=== PATIENT | male | born 1965 | race Caucasian/White ===

== ENCOUNTER 2017-11-18 11:10 | Inpatient (IN) | payer OTHER ==
[~2017-11-18] VITALS: Ht 182.9 cm; Wt 81.2 kg
[~2017-11-18 11:10] MED LIST: ACET325; ACET325 PO; ALBU90I INH; ALBU90OI INH; ALBU90OI61 INH; AMIT25 PO; ASPIRIN; AZIT250 PO; BECL80OI INH; BUDE6HFA INH; CIPR500 PO; CLIN300 PO; CODGUAEL PO; DOXY100 PO; HYDACE5 PO; IBUP600 PO; IBUP800 PO; LISI10 PO; LORA1 PO; MEDICAL MARIJUANA; METF500 PO; METO50ER PO; METPRE4DP PO; NAPR500EC PO; NAPR550 PO; ONDA4 PO; ONDA4ODT MM; OXYACE5T PO; PRED20 PO; PROC10 PO; PROVENTIL; Prilosec Otc20 MG PO; QVAR INH; RXHYDMOR2 PO; RXONDA4ODT MM; SULTRIDS PO; TRAZ50 PO
[2017-11-18 11:35] LABS: BASOPHILS ABSOLUTE AUTO 0.07 K/mm3 (0.00-0.23); BASOPHILS PERCENT AUTO 1 % (0-2); EOSINOPHILS ABSOLUTE AUTO 0.75 K/mm3 (0.00-0.68); EOSINOPHILS PERCENT AUTO 10 % (0-6); Hematocrit 46.8 % (37.0-53.0); Hemoglobin 15.5 g/dL (13.5-17.5); IMMATURE GRAN ABSOLUTE AUTO 0.02 K/mm3 (0.00-0.10); IMMATURE GRAN PERCENT AUTO 0 % (0-1); LYMPHOCYTES ABSOLUTE AUTO 2.55 K/mm3 (0.84-5.20); LYMPHOCYTES PERCENT AUTO 34 % (21-46); MONOCYTES ABSOLUTE AUTO 0.85 K/mm3 (0.16-1.47); MONOCYTES PERCENT AUTO 11 % (4-13); Mean Corpuscular HGB 32.3 pg (26.0-34.0); Mean Corpuscular HGB Conc 33.1 g/dL (31.5-36.5); Mean Corpuscular Volume 98 fL (80-100); Mean Platelet Volume 11.4 fL (9.1-12.4); NEUTROPHILS ABSOLUTE AUTO 3.33 K/mm3 (1.96-9.15); NEUTROPHILS PERCENT AUTO 44 % (41-73); Platelet Count 234 K/mm3 (150-400); RDW Coefficient Variation 12.9 % (11.7-14.2); RDW Standard Deviation 46.6 fL (35.1-46.3); White Blood Cell Count 7.57 K/mm3 (4.00-11.30)
[2017-11-18 11:47] LABS: International Normalized Ratio 1.03; Prothrombin Time Results 10.7 Sec (9.7-11.5)
[2017-11-18 11:57] LABS: Alanine Aminotransfer (ALT/SGP 28 U/L (12-78); Albumin, Blood 3.9 g/dL (3.4-5.0); Albumin/Globulin Ratio 1.1 (0.8-1.8); Alk Phos 100 U/L (50-136); Anion Gap 6 mmol/L (6-16); Aspartate Aminotrans (AST/SGOT 17 U/L (12-37); Bilirubin, Total 0.5 mg/dL (0.1-1.0); Blood Urea Nitrogen 7 mg/dL (8-24); Bun/Creatinine Ratio 8.8 (12.0-20.0); CO2, Blood 27 mmol/L (21-32); Calcium, Blood 8.5 mg/dL (8.5-10.1); Chloride, Blood 108 mmol/L (98-108); Creatinine, Blood 0.79 mg/dL (0.60-1.20); Globulin, Blood 3.6 g/dL (2.2-4.0); Glomerular Filtration Rate >60 (60-); Glucose, Blood 172 mg/dL (70-99); Potassium, Blood 3.8 mmol/L (3.5-5.5); Sodium, Blood 141 mmol/L (136-145); Total Protein, Blood 7.5 g/dL (6.4-8.2); Troponin I 0.023 ng/mL (0.000-0.040)
[2017-11-18 12:12] LABS: Source, Urine Clean Catch
[2017-11-18 12:38] LABS: Bilirubin, Urine Neg (Neg); Blood, Urine 1+ (Neg); Glucose Qualitative, Urine 4+ (Neg); Ketones, Urine Neg (Neg); Leukocyte Esterase, Urine 1+ (Neg); Nitrite, Urine Neg (Neg); Protein, Urine 1+ (Neg); Urobilinogen, Urine 1+ (Normal)
[2017-11-18 12:44] LABS: Appearance, Urine Clear (Clear); Color, Urine Yellow (P-Yellow)
[2017-11-18 12:46] LABS: Bacteria Not Seen /hpf; Red Blood Cells, Urine 0-2 /hpf (0-2); Squamous Epithelial Cells Few /hpf (Few); White Blood Cells, Urine 0-2 /hpf (0-5)
[2017-11-19 05:16] LABS: CHOL/HDL RATIO 3.4; Cholesterol 152 mg/dL (50-200); HDL Cholesterol 45 mg/dL (>39); LDL/HDL RATIO 1.6; Low Density Lipoprotein Chol 70 mg/dL (0-110); Triglycerides 183 mg/dL (30-160); Very Low Density Lipoprot Chol 36 mg/dL (6-32)
[2017-11-20 04:06] LABS: Mean Platelet Volume 12.5 fL (9.1-12.4); Platelet Count 187 K/mm3 (150-400)
[2018-02-22] MEDS ORDERED: METF500C PO (05:53)
[2018-02-22] MEDS ORDERED: ASPI325EC PO (05:53)
[2018-05-15] MEDS ORDERED: ATOR80 PO (05:25)
[2018-05-15] MEDS ORDERED: CARV6.25 PO (05:25)
[2018-05-15] MEDS ORDERED: IBUPROFEN200 MG PO (05:26)
[2018-05-15] MEDS ORDERED: EZET10 PO (05:26)
[2018-07-13] MEDS ORDERED: METF500C PO (06:04)
[2018-07-13] MEDS ORDERED: TIOT18 INH (17:39)
[2018-07-14] MEDS ORDERED: Acetaminophen325 M1 PO (11:21)
[2018-07-14] MEDS ORDERED: Humalog100 UNIT/3 SC (11:24)
[2018-07-14] MEDS ORDERED: NICOTINE1 EACH TOP (11:24)
[2018-08-19] MEDS ORDERED: Prinivil10 MG PO (14:36)
[2018-08-19] MEDS ORDERED: BASAGLAR K100 UNIT/1 SC (14:37)
[2018-08-19] MEDS ORDERED: ALBU90OI INH (14:39)
[2018-08-19] MEDS ORDERED: Atrovent Inha12.9 GM INH (14:40)
[2018-08-20] MEDS ORDERED: TRAM50 PO (06:52)
[2018-08-26] MEDS ORDERED: BASAGLAR K100 UNIT/1 SC (21:22)
== END 2017-11-21 16:04 | disposition short-term general hospital (02) | DRG 281 ==
LOC: ER 11:10 → MEDS 14:13 → PCU 14:13
PROVIDERS: Family Medicine; Internal Medicine Cardiovascular Disease; Physician Assistant
PROC: 4A023N7 Measurement of Cardiac Sampling and Pressure, Left Heart, Percutaneous Approach (ICD-10-PCS; principal; 2017-11-18)
PROC: B2111ZZ Fluoroscopy of Multiple Coronary Arteries using Low Osmolar Contrast (ICD-10-PCS; 2017-11-18)
DX: I21.4 Non-ST elevation (NSTEMI) myocardial infarction (principal); I23.7 Postinfarction angina; I25.82 Chronic total occlusion of coronary artery; I25.118 Atherosclerotic heart disease of native coronary artery with other forms of angina pectoris; I10 Essential (primary) hypertension; F17.200 Nicotine dependence, unspecified, uncomplicated; J44.9 Chronic obstructive pulmonary disease, unspecified; F10.10 Alcohol abuse, uncomplicated; M47.812 Spondylosis without myelopathy or radiculopathy, cervical region; R73.03 Prediabetes; Z82.49 Family history of ischemic heart disease and other diseases of the circulatory system; Z79.51 Long term (current) use of inhaled steroids; Z79.899 Other long term (current) drug therapy; Z88.0 Allergy status to penicillin; Z88.8 Allergy status to other drugs, medicaments and biological substances
CPT/HCPCS: 36415; 71046; 80053; 80061; 81001; 83036; 83880; 84484; 85025; 85049; 85610; 85730; 87086; 93005; 93010; 93306; 93454; 94640; 94760; 94762; 96374; 96375; 99152; 99153; 99285; C1769; J1644; J1885; J2250; J2270; J3010; J7030; J7040; Q9967

== ENCOUNTER 2018-02-22 05:18 | Emergency (ER) | payer OTHER ==
[~2018-02-22] VITALS: Ht 182.9 cm; Wt 86.2 kg
[2018-02-22 05:50] LABS: BASOPHILS ABSOLUTE AUTO 0.06 K/mm3 (0.00-0.23); BASOPHILS PERCENT AUTO 0 % (0-2); EOSINOPHILS ABSOLUTE AUTO 0.08 K/mm3 (0.00-0.68); EOSINOPHILS PERCENT AUTO 0 % (0-6); Hematocrit 43.5 % (37.0-53.0); Hemoglobin 14.6 g/dL (13.5-17.5); IMMATURE GRAN ABSOLUTE AUTO 0.08 K/mm3 (0.00-0.10); IMMATURE GRAN PERCENT AUTO 0 % (0-1); LYMPHOCYTES ABSOLUTE AUTO 3.09 K/mm3 (0.84-5.20); LYMPHOCYTES PERCENT AUTO 17 % (21-46); MONOCYTES PERCENT AUTO 6 % (4-13); Mean Corpuscular HGB 31.1 pg (26.0-34.0); Mean Corpuscular HGB Conc 33.6 g/dL (31.5-36.5); Mean Corpuscular Volume 93 fL (80-100); Mean Platelet Volume 11.6 fL (9.1-12.4); NEUTROPHILS ABSOLUTE AUTO 14.28 K/mm3 (1.96-9.15); NEUTROPHILS PERCENT AUTO 77 % (41-73); Platelet Count 255 K/mm3 (150-400); RDW Coefficient Variation 13.4 % (11.7-14.2); RDW Standard Deviation 45.7 fL (35.1-46.3); White Blood Cell Count 18.69 K/mm3 (4.00-11.30)
[2018-02-22] MEDS ORDERED: ASPI325 PO (05:53)
[2018-02-22] MEDS ORDERED: METO25 (05:53)
[2018-02-22] MEDS ORDERED: METF500C (05:53)
[2018-02-22 06:06] LABS: Alanine Aminotransfer (ALT/SGP 46 U/L (12-78); Albumin, Blood 4.3 g/dL (3.4-5.0); Albumin/Globulin Ratio 1.3 (0.8-1.8); Alk Phos 97 U/L (50-136); Anion Gap 12 mmol/L (6-16); Aspartate Aminotrans (AST/SGOT 20 U/L (12-37); Bilirubin, Total 0.3 mg/dL (0.1-1.0); Blood Urea Nitrogen 7 mg/dL (8-24); Bun/Creatinine Ratio 11.5 (12.0-20.0); CO2, Blood 20 mmol/L (21-32); Calcium, Blood 8.6 mg/dL (8.5-10.1); Chloride, Blood 108 mmol/L (98-108); Creatinine, Blood 0.61 mg/dL (0.60-1.20); Globulin, Blood 3.3 g/dL (2.2-4.0); Glomerular Filtration Rate >60 (60-); Glucose, Blood 150 mg/dL (70-99); Potassium, Blood 3.7 mmol/L (3.5-5.5); Sodium, Blood 140 mmol/L (136-145); Total Protein, Blood 7.6 g/dL (6.4-8.2); Troponin I <0.015 ng/mL (0.000-0.040)
== END 2018-02-22 11:00 | disposition home or self-care (01) ==
LOC: ER 05:18
PROVIDERS: Emergency Medicine
DX: R07.89 Other chest pain (principal); E11.9 Type 2 diabetes mellitus without complications; F41.9 Anxiety disorder, unspecified; I10 Essential (primary) hypertension; J44.9 Chronic obstructive pulmonary disease, unspecified; I25.2 Old myocardial infarction; Z88.0 Allergy status to penicillin; Z88.8 Allergy status to other drugs, medicaments and biological substances; Z79.899 Other long term (current) drug therapy; Z79.82 Long term (current) use of aspirin; Z79.84 Long term (current) use of oral hypoglycemic drugs; Z87.891 Personal history of nicotine dependence
CPT/HCPCS: 36415; 71046; 80053; 84484; 85025; 93005; 93010; J2405

== ENCOUNTER 2018-05-15 05:03 | Emergency (ER) | payer OTHER ==
[~2018-05-15] VITALS: Ht 182.9 cm; Wt 74.8 kg
[~2018-05-15 05:03] MED LIST changes: +ASPI325 PO; +METF500C; +METO25
[2018-05-15] MEDS ORDERED: CARV3.125 (05:25)
[2018-05-15] MEDS ORDERED: ATOR20 (05:25)
[2018-05-15] MEDS ORDERED: FLUO10 (05:26)
[2018-05-15] MEDS ORDERED: IBUPROFEN200 MG (05:26)
[2018-05-15] MEDS ORDERED: EZET10 (05:26)
[2018-05-15 05:32] LABS: BASOPHILS ABSOLUTE AUTO 0.11 K/mm3 (0.00-0.23); BASOPHILS PERCENT AUTO 1 % (0-2); EOSINOPHILS ABSOLUTE AUTO 1.18 K/mm3 (0.00-0.68); EOSINOPHILS PERCENT AUTO 11 % (0-6); Hematocrit 43.4 % (37.0-53.0); IMMATURE GRAN ABSOLUTE AUTO 0.02 K/mm3 (0.00-0.10); IMMATURE GRAN PERCENT AUTO 0 % (0-1); LYMPHOCYTES ABSOLUTE AUTO 2.24 K/mm3 (0.84-5.20); LYMPHOCYTES PERCENT AUTO 21 % (21-46); MONOCYTES ABSOLUTE AUTO 0.84 K/mm3 (0.16-1.47); MONOCYTES PERCENT AUTO 8 % (4-13); Mean Corpuscular HGB 33.5 pg (26.0-34.0); Mean Corpuscular HGB Conc 34.6 g/dL (31.5-36.5); Mean Corpuscular Volume 97 fL (80-100); Mean Platelet Volume 11.5 fL (9.1-12.4); NEUTROPHILS ABSOLUTE AUTO 6.17 K/mm3 (1.96-9.15); NEUTROPHILS PERCENT AUTO 58 % (41-73); Platelet Count 278 K/mm3 (150-400); RDW Coefficient Variation 13.2 % (11.7-14.2); RDW Standard Deviation 47.3 fL (35.1-46.3); Red Blood Cell Count 4.48 M/mm3 (4.30-5.90); White Blood Cell Count 10.56 K/mm3 (4.00-11.30)
[2018-05-15] MEDS ORDERED: ALBU90OI INH (05:55)
[2018-05-15] MEDS ORDERED: Prednisone20 MG PO (05:55)
[2018-05-15 05:56] LABS: Alanine Aminotransfer (ALT/SGP 44 U/L (12-78); Albumin, Blood 3.7 g/dL (3.4-5.0); Albumin/Globulin Ratio 0.9 (0.8-1.8); Alk Phos 97 U/L (50-136); Anion Gap 10 mmol/L (6-16); Aspartate Aminotrans (AST/SGOT 38 U/L (12-37); Bilirubin, Total 0.4 mg/dL (0.1-1.0); Blood Urea Nitrogen 13 mg/dL (8-24); Bun/Creatinine Ratio 17.9 (12.0-20.0); CO2, Blood 24 mmol/L (21-32); Chloride, Blood 105 mmol/L (98-108); Creatinine, Blood 0.73 mg/dL (0.60-1.20); Globulin, Blood 3.9 g/dL (2.2-4.0); Glomerular Filtration Rate >60 (60-); Glucose, Blood 157 mg/dL (70-99); Potassium, Blood 4.2 mmol/L (3.5-5.5); Sodium, Blood 139 mmol/L (136-145); Total Protein, Blood 7.6 g/dL (6.4-8.2); Troponin I <0.015 ng/mL (0.000-0.040)
== END 2018-05-15 06:23 | disposition home or self-care (01) ==
LOC: ER 05:03
PROVIDERS: Emergency Medicine
DX: J44.1 Chronic obstructive pulmonary disease with (acute) exacerbation (principal); J98.01 Acute bronchospasm; E11.9 Type 2 diabetes mellitus without complications; I10 Essential (primary) hypertension; I25.2 Old myocardial infarction; J44.9 Chronic obstructive pulmonary disease, unspecified; F17.200 Nicotine dependence, unspecified, uncomplicated; Z88.0 Allergy status to penicillin; Z88.8 Allergy status to other drugs, medicaments and biological substances; Z79.899 Other long term (current) drug therapy; Z79.82 Long term (current) use of aspirin; Z79.51 Long term (current) use of inhaled steroids; Z79.84 Long term (current) use of oral hypoglycemic drugs
CPT/HCPCS: 36415; 71045; 80053; 83880; 84484; 85025; 93005; 93010; 94640; 96374; 99285-25; J2930

== ENCOUNTER 2018-06-21 02:51 | Emergency (ER) | payer OTHER ==
[~2018-06-21] VITALS: Ht 182.9 cm; Wt 77.1 kg
[~2018-06-21 02:51] MED LIST changes: +ATOR20; +CARV6.25; +EZET10; +FLUO10; +IBUPROFEN200 MG; +Prednisone20 MG PO
[2018-06-21 03:17] LABS: BASOPHILS ABSOLUTE AUTO 0.11 K/mm3 (0.00-0.23); BASOPHILS PERCENT AUTO 1 % (0-2); EOSINOPHILS ABSOLUTE AUTO 1.07 K/mm3 (0.00-0.68); EOSINOPHILS PERCENT AUTO 7 % (0-6); Hematocrit 46.5 % (37.0-53.0); Hemoglobin 15.6 g/dL (13.5-17.5); IMMATURE GRAN ABSOLUTE AUTO 0.05 K/mm3 (0.00-0.10); IMMATURE GRAN PERCENT AUTO 0 % (0-1); LYMPHOCYTES ABSOLUTE AUTO 3.09 K/mm3 (0.84-5.20); LYMPHOCYTES PERCENT AUTO 20 % (21-46); MONOCYTES ABSOLUTE AUTO 0.94 K/mm3 (0.16-1.47); MONOCYTES PERCENT AUTO 6 % (4-13); Mean Corpuscular HGB 33.1 pg (26.0-34.0); Mean Corpuscular HGB Conc 33.5 g/dL (31.5-36.5); Mean Corpuscular Volume 99 fL (80-100); Mean Platelet Volume 10.8 fL (9.1-12.4); NEUTROPHILS PERCENT AUTO 66 % (41-73); Platelet Count 327 K/mm3 (150-400); RDW Standard Deviation 44.4 fL (35.1-46.3); Red Blood Cell Count 4.71 M/mm3 (4.30-5.90); White Blood Cell Count 15.36 K/mm3 (4.00-11.30)
[2018-06-21 03:37] LABS: Alanine Aminotransfer (ALT/SGP 31 U/L (12-78); Albumin/Globulin Ratio 1.1 (0.8-1.8); Alk Phos 88 U/L (50-136); Anion Gap 9 mmol/L (6-16); Aspartate Aminotrans (AST/SGOT 19 U/L (12-37); Bilirubin, Total 0.3 mg/dL (0.1-1.0); Blood Urea Nitrogen 8 mg/dL (8-24); Bun/Creatinine Ratio 11.6 (12.0-20.0); CO2, Blood 24 mmol/L (21-32); Calcium, Blood 8.4 mg/dL (8.5-10.1); Chloride, Blood 107 mmol/L (98-108); Creatinine, Blood 0.69 mg/dL (0.60-1.20); Globulin, Blood 3.8 g/dL (2.2-4.0); Glomerular Filtration Rate >60 (60-); Glucose, Blood 150 mg/dL (70-99); Potassium, Blood 3.9 mmol/L (3.5-5.5); Sodium, Blood 140 mmol/L (136-145); Total Protein, Blood 7.8 g/dL (6.4-8.2); Troponin I <0.015 ng/mL (0.000-0.040)
[2018-06-21] MEDS ORDERED: Zithromax250 MG PO (03:58)
[2018-06-21] MEDS ORDERED: Prednisone50 MG PO (03:58)
== END 2018-06-21 04:04 | disposition home or self-care (01) ==
LOC: ER 02:51
PROVIDERS: Emergency Medicine
DX: J44.1 Chronic obstructive pulmonary disease with (acute) exacerbation (principal); E11.9 Type 2 diabetes mellitus without complications; I25.2 Old myocardial infarction; I10 Essential (primary) hypertension; Z88.0 Allergy status to penicillin; Z88.8 Allergy status to other drugs, medicaments and biological substances; Z79.899 Other long term (current) drug therapy; Z79.51 Long term (current) use of inhaled steroids; Z79.82 Long term (current) use of aspirin; Z79.84 Long term (current) use of oral hypoglycemic drugs; Z87.891 Personal history of nicotine dependence
CPT/HCPCS: 36415; 71045; 80053; 83880; 84484; 85025; 93005; 93010; 94640; 96374; 99285-25; J1100

== ENCOUNTER 2018-06-24 16:19 | Emergency (ER) | payer OTHER ==
[~2018-06-24] VITALS: Ht 182.9 cm; Wt 72.6 kg
[~2018-06-24 16:19] MED LIST changes: +Prednisone50 MG PO; +Zithromax250 MG PO
[2018-06-24] MEDS ORDERED: METPRE4DP PO (18:44)
[2018-06-24] MEDS ORDERED: Zithromax250 MG PO (18:44)
== END 2018-06-24 19:01 | disposition home or self-care (01) ==
LOC: ER 16:19
DX: J44.1 Chronic obstructive pulmonary disease with (acute) exacerbation (principal); F17.200 Nicotine dependence, unspecified, uncomplicated; E11.9 Type 2 diabetes mellitus without complications; I10 Essential (primary) hypertension; I25.2 Old myocardial infarction; Z88.0 Allergy status to penicillin; Z88.8 Allergy status to other drugs, medicaments and biological substances; Z79.899 Other long term (current) drug therapy; Z79.51 Long term (current) use of inhaled steroids; Z79.82 Long term (current) use of aspirin; Z79.84 Long term (current) use of oral hypoglycemic drugs
CPT/HCPCS: 71046; 94640; 94644; 99285-25

== ENCOUNTER 2018-09-26 03:04 | Observation (INO) | payer OTHER ==
[~2018-09-26] VITALS: Ht 182.9 cm; Wt 71.1 kg
[~2018-09-26 03:04] MED LIST changes: -ASPI325 PO; +ASPI325EC PO; -ATOR20; +ATOR80 PO; +Acetaminophen325 M1 PO; +Atrovent Inha12.9 GM INH; +BASAGLAR K100 UNIT/1 SC; -CARV6.25; +CARV6.25 PO; -EZET10; +EZET10 PO; +Humalog100 UNIT/3 SC; -IBUPROFEN200 MG; +IBUPROFEN200 MG PO; -METF500C; +METF500C PO; +NICOTINE1 EACH TOP; +Prinivil10 MG PO; +TIOT18 INH; +TRAM50 PO
[2018-09-26 03:24] LABS: BASOPHILS ABSOLUTE AUTO 0.09 K/mm3 (0.00-0.23); BASOPHILS PERCENT AUTO 1 % (0-2); EOSINOPHILS ABSOLUTE AUTO 0.69 K/mm3 (0.00-0.68); EOSINOPHILS PERCENT AUTO 6 % (0-6); Hematocrit 50.2 % (37.0-53.0); Hemoglobin 16.4 g/dL (13.5-17.5); IMMATURE GRAN ABSOLUTE AUTO 0.06 K/mm3 (0.00-0.10); IMMATURE GRAN PERCENT AUTO 1 % (0-1); LYMPHOCYTES ABSOLUTE AUTO 3.68 K/mm3 (0.84-5.20); LYMPHOCYTES PERCENT AUTO 34 % (21-46); MONOCYTES ABSOLUTE AUTO 0.73 K/mm3 (0.16-1.47); MONOCYTES PERCENT AUTO 7 % (4-13); Mean Corpuscular HGB 31.7 pg (26.0-34.0); Mean Corpuscular HGB Conc 32.7 g/dL (31.5-36.5); Mean Corpuscular Volume 97 fL (80-100); NEUTROPHILS ABSOLUTE AUTO 5.66 K/mm3 (1.96-9.15); NEUTROPHILS PERCENT AUTO 52 % (41-73); Platelet Count 337 K/mm3 (150-400); RDW Coefficient Variation 13.1 % (11.7-14.2); RDW Standard Deviation 47.1 fL (35.1-46.3); Red Blood Cell Count 5.17 M/mm3 (4.30-5.90); White Blood Cell Count 10.91 K/mm3 (4.00-11.30)
[2018-09-26 03:38] LABS: International Normalized Ratio 1.03; Prothrombin Time Results 10.6 Sec (9.7-11.5)
[2018-09-26 03:45] LABS: Alanine Aminotransfer (ALT/SGP 26 U/L (12-78); Albumin, Blood 4.1 g/dL (3.4-5.0); Albumin/Globulin Ratio 0.9 (0.8-1.8); Alk Phos 105 U/L (50-136); Anion Gap 11 mmol/L (6-16); Aspartate Aminotrans (AST/SGOT 14 U/L (12-37); Bilirubin, Total 0.3 mg/dL (0.1-1.0); Blood Urea Nitrogen 10 mg/dL (8-24); Bun/Creatinine Ratio 14.7 (12.0-20.0); CO2, Blood 21 mmol/L (21-32); Calcium, Blood 8.8 mg/dL (8.5-10.1); Chloride, Blood 111 mmol/L (98-108); Creatinine, Blood 0.68 mg/dL (0.60-1.20); Ethanol (Alcohol), Blood, Med 145 mg/dL; Globulin, Blood 4.4 g/dL (2.2-4.0); Glomerular Filtration Rate >60 (60-); Glucose, Blood 141 mg/dL (70-99); Potassium, Blood 4.1 mmol/L (3.5-5.5); Sodium, Blood 143 mmol/L (136-145); Total Protein, Blood 8.5 g/dL (6.4-8.2)
[2018-09-26] MEDS ORDERED: LISI5 PO (03:52)
[2018-09-26 04:50] LABS: Source, Urine Clean Catch
[2018-09-26 04:53] LABS: Bilirubin, Urine Neg (Neg); Blood, Urine 1+ (Neg); Glucose Qualitative, Urine Neg (Neg); Ketones, Urine Neg (Neg); Leukocyte Esterase, Urine Neg (Neg); Nitrite, Urine Neg (Neg); Protein, Urine Neg (Neg); Urobilinogen, Urine NORM (Normal)
[2018-09-26 05:06] LABS: Appearance, Urine Clear (Clear); Color, Urine Yellow (P-Yellow)
[2018-09-26 05:15] LABS: Bacteria Not Seen /hpf; Red Blood Cells, Urine Not Seen /hpf (0-2); Squamous Epithelial Cells Not Seen /hpf (Few); White Blood Cells, Urine Not Seen /hpf (0-5)
[2018-09-26 05:17] LABS: U Amphetamine Screen Not Detected; U Barbituate Screen Not Detected; U Benzodiazapine Screen Not Detected; U Buprenorphine Screen Not Detected; U Cannabinoids Screen DETECTED; U Cocaine Screen Not Detected; U Methadone Screen Not Detected; U Methamphetamine Screen Not Detected; U Opiates Screen Not Detected; U Phencyclidine Screen Not Detected; U Propoxyphene Screen Not Detected
[2018-09-26 05:18] LABS: U Oxycodone Screen Not Detected
--- NOTE | 2018-09-26 13:01 | NUR ---
PT C/O HEADACHE. CALLED DR TLAANG. SYED ONCE TYLENOL 650 MG. PO . ONE TIME.
[2018-09-26] MEDS ORDERED: Bisoprolol Fumar5 MG PO (14:48)
--- NOTE | 2018-09-26 15:06 | NUR ---
HEADACHE PERSISTS AN HOUR AFTER TYLENOL.. COFFEE GIVEN. WILL FOLLOW
--- NOTE | 2018-09-26 15:58 | NUR ---
PT STATES HEADACHE BETTER WITH COFFEE
--- NOTE | 2018-09-26 17:27 | NUR ---
PT STATES TREMORS NORM FOR HIM. NEVER STOP. HEADACHE RESOLVED WITH 2 CUPS COFFEE. PT PLEASANT.
--- NOTE | 2018-09-26 17:52 | NUR ---
PT IMPROVING. HAS NO NOTICEABLE STRENGTH LOSS THIS MARIE LEFT TO RIGHT. PT H/A GONE WITH CAFFEINE. PT ADMITS LIGHT TREMORS RN MATERNITY. NEVER GO AWAY. DENIES HALUCINATIONS, OTHER AFFECTS OF ETOH W/D AT THIS TIME. PT WALKED HALLS WITH EASE WITH PT. STATES FEELS PRETTY GOOD AT THIS TIME. BED IN LOW POSITION, CALL LITE IN REACH, CALLS APPROP.
--- NOTE | 2018-09-26 18:23 | NUR ---
PT WALKED PT DOWN SPRING INDEPENDANTLY. ALMOST NO DEFICIT NOTED LEFT TO RIGHT. PT COMFORTABLE WITH STABILITY AND MOVEMENT. CALLED DR DAVALOS. OKAY COMPLETE BEDREST AND ALLOW WALKING
[2018-09-27 06:06] LABS: Anion Gap 7 mmol/L (6-16); Blood Urea Nitrogen 15 mg/dL (8-24); Bun/Creatinine Ratio 18.4 (12.0-20.0); CHOL/HDL RATIO 4.4; CO2, Blood 26 mmol/L (21-32); Calcium, Blood 9.3 mg/dL (8.5-10.1); Chloride, Blood 103 mmol/L (98-108); Cholesterol 182 mg/dL (50-200); Creatinine, Blood 0.82 mg/dL (0.60-1.20); Glomerular Filtration Rate >60 (60-); Glucose, Blood 189 mg/dL (70-99); HDL Cholesterol 41 mg/dL (>39); LDL/HDL RATIO 2.6; Low Density Lipoprotein Chol 108 mg/dL (0-110); Magnesium, Blood 2.1 mg/dL (1.6-2.4); Phosphorus, Blood 3.5 mg/dL (2.5-4.9); Sodium, Blood 136 mmol/L (136-145); Triglycerides 163 mg/dL (30-160); Very Low Density Lipoprot Chol 32 mg/dL (6-32)
--- NOTE | 2018-09-27 06:31 | NUR ---
LYING IN SEMI FOWLERS WITH EYES CLOSED. NO CHANGES SINCE START OF SHIFT. SAFETY MEASURES IN PLACE. WILL CONTINUE TO MONITOR.
[2018-09-27] MEDS ORDERED: THIA100I PO (12:52)
[2018-09-27] MEDS ORDERED: Hair, Skin & N1 EACH PO (12:53)
== END 2018-09-27 13:07 | disposition home or self-care (01) ==
LOC: ER 03:04 → SURS 03:05 → ER 05:40 → SURS 08:29
PROVIDERS: Emergency Medicine; Internal Medicine; ADMIT Hospitalist
DX: R29.898 Other symptoms and signs involving the musculoskeletal system (principal); I10 Essential (primary) hypertension; J44.9 Chronic obstructive pulmonary disease, unspecified; R56.9 Unspecified convulsions; E11.8 Type 2 diabetes mellitus with unspecified complications; F10.129 Alcohol abuse with intoxication, unspecified; F12.90 Cannabis use, unspecified, uncomplicated; E87.2 Acidosis; F32.9 Major depressive disorder, single episode, unspecified; F10.10 Alcohol abuse, uncomplicated; E11.9 Type 2 diabetes mellitus without complications; Z79.4 Long term (current) use of insulin; I25.10 Atherosclerotic heart disease of native coronary artery without angina pectoris; Z95.1 Presence of aortocoronary bypass graft; F17.210 Nicotine dependence, cigarettes, uncomplicated; Z88.0 Allergy status to penicillin; Z88.8 Allergy status to other drugs, medicaments and biological substances; Z79.82 Long term (current) use of aspirin; Z79.899 Other long term (current) drug therapy
CPT/HCPCS: 36415; 70450; 70496; 70498; 70551; 80048; 80053; 80061; 81001; 82550; 82947; 83036; 83605; 83735; 84100; 84484; 85025; 85610; 92610; 93005; 93010; 94640; 94760; 95950; 96360; 96361; 97161; 99285-25; G0480; G8978; G8979; G8980; G8996; G8997; G8998; J1650; J2060; J7030; Q9967

== ENCOUNTER 2019-01-18 16:44 | Emergency (ER) | payer OTHER ==
[~2019-01-18] VITALS: Ht 180.3 cm; Wt 81.7 kg
[~2019-01-18 16:44] MED LIST changes: +Bisoprolol Fumar5 MG PO; +Hair, Skin & N1 EACH PO; +LISI5 PO; +THIA100I PO
[2019-01-18 17:15] LABS: BASOPHILS ABSOLUTE AUTO 0.06 K/mm3 (0.00-0.23); BASOPHILS PERCENT AUTO 1 % (0-2); EOSINOPHILS ABSOLUTE AUTO 0.27 K/mm3 (0.00-0.68); EOSINOPHILS PERCENT AUTO 2 % (0-6); Hematocrit 48.3 % (37.0-53.0); Hemoglobin 16.5 g/dL (13.5-17.5); IMMATURE GRAN ABSOLUTE AUTO 0.04 K/mm3 (0.00-0.10); IMMATURE GRAN PERCENT AUTO 0 % (0-1); LYMPHOCYTES ABSOLUTE AUTO 4.18 K/mm3 (0.84-5.20); LYMPHOCYTES PERCENT AUTO 35 % (21-46); MONOCYTES ABSOLUTE AUTO 0.56 K/mm3 (0.16-1.47); MONOCYTES PERCENT AUTO 5 % (4-13); Mean Corpuscular HGB 31.9 pg (26.0-34.0); Mean Corpuscular HGB Conc 34.2 g/dL (31.5-36.5); Mean Corpuscular Volume 93 fL (80-100); Mean Platelet Volume 10.9 fL (9.1-12.4); NEUTROPHILS ABSOLUTE AUTO 6.96 K/mm3 (1.96-9.15); NEUTROPHILS PERCENT AUTO 58 % (41-73); Platelet Count 337 K/mm3 (150-400); RDW Coefficient Variation 13.6 % (11.7-14.2); RDW Standard Deviation 46.6 fL (35.1-46.3); Red Blood Cell Count 5.17 M/mm3 (4.30-5.90); White Blood Cell Count 12.07 K/mm3 (4.00-11.30)
[2019-01-18 17:29] LABS: Alanine Aminotransfer (ALT/SGP 26 U/L (12-78); Albumin, Blood 4.2 g/dL (3.4-5.0); Alk Phos 96 U/L (50-136); Anion Gap 11 mmol/L (6-16); Aspartate Aminotrans (AST/SGOT 19 U/L (12-37); Bilirubin, Total 0.2 mg/dL (0.1-1.0); Blood Urea Nitrogen 6 mg/dL (8-24); Bun/Creatinine Ratio 9.5 (12.0-20.0); CO2, Blood 22 mmol/L (21-32); Calcium, Blood 8.9 mg/dL (8.5-10.1); Chloride, Blood 109 mmol/L (98-108); Creatinine, Blood 0.63 mg/dL (0.60-1.20); Ethanol (Alcohol), Blood, Med 240 mg/dL; Glomerular Filtration Rate >60 (60-); Glucose, Blood 150 mg/dL (70-99); Potassium, Blood 3.9 mmol/L (3.5-5.5); Sodium, Blood 142 mmol/L (136-145); Total Protein, Blood 8.2 g/dL (6.4-8.2); Troponin I 0.026 ng/mL (0.000-0.040)
[2019-01-18 17:30] LABS: Prothrombin Time Results 10.6 Sec (9.7-11.5)
[2019-01-18 17:40] LABS: PCO2 Venous 40.1 mmHg (38-42); PO2 Venous 142 mmHg (38-42)
[2019-01-18 17:41] LABS: Base Excess Venous 0.1 mmol/L; Bicarbonate Venous 24.5 mmol/L (24.0-30.0)
[2019-01-18 17:58] LABS: Source, Urine Voided
[2019-01-18 18:04] LABS: Appearance, Urine Clear (Clear); Bilirubin, Urine Neg (Neg); Blood, Urine 2+ (Neg); Color, Urine Yellow (P-Yellow); Glucose Qualitative, Urine Neg (Neg); Ketones, Urine Neg (Neg); Leukocyte Esterase, Urine Neg (Neg); Nitrite, Urine Neg (Neg); Protein, Urine 2+ (Neg); Urobilinogen, Urine NORM (Normal)
[2019-01-18 18:33] LABS: Amorphous Light (0-Heavy); Bacteria Not Seen /hpf; Mucus Mod (0-Heavy); Red Blood Cells, Urine 0-2 /hpf (0-2); Squamous Epithelial Cells Few /hpf (Few); White Blood Cells, Urine Rare /hpf (0-5)
[2019-01-18 18:39] LABS: U Amphetamine Screen Not Detected; U Barbituate Screen Not Detected; U Benzodiazapine Screen Not Detected; U Buprenorphine Screen Not Detected; U Cannabinoids Screen DETECTED; U Cocaine Screen Not Detected; U Methadone Screen Not Detected; U Methamphetamine Screen Not Detected; U Opiates Screen Not Detected; U Oxycodone Screen Not Detected; U Phencyclidine Screen Not Detected; U Propoxyphene Screen Not Detected
[2019-01-18] MEDS ORDERED: Nitrostat0.4 MG SL (20:07)
== END 2019-01-18 20:15 | disposition home or self-care (01) ==
LOC: ER 16:44
PROVIDERS: Emergency Medicine
DX: R07.89 Other chest pain (principal); J44.9 Chronic obstructive pulmonary disease, unspecified; E11.9 Type 2 diabetes mellitus without complications; Z88.0 Allergy status to penicillin; Z88.8 Allergy status to other drugs, medicaments and biological substances; Z79.4 Long term (current) use of insulin; Z79.82 Long term (current) use of aspirin; I10 Essential (primary) hypertension; F32.9 Major depressive disorder, single episode, unspecified; I25.10 Atherosclerotic heart disease of native coronary artery without angina pectoris; Z87.891 Personal history of nicotine dependence
CPT/HCPCS: 70450; 71045; 80053; 81001; 82803; 82947; 84484; 85025; 85610; 93005; 93010; 96374; 96375; 99285-25; G0480; J2060; J2405

== ENCOUNTER 2019-08-06 20:47 | Emergency (ER) | payer OTHER ==
[~2019-08-06] VITALS: Ht 182.9 cm; Wt 77.1 kg
[~2019-08-06 20:47] MED LIST changes: +Nitrostat0.4 MG SL
[2019-08-06 21:39] LABS: BASOPHILS ABSOLUTE AUTO 0.06 K/mm3 (0.00-0.23); BASOPHILS PERCENT AUTO 0 % (0-2); EOSINOPHILS ABSOLUTE AUTO 0.09 K/mm3 (0.00-0.68); EOSINOPHILS PERCENT AUTO 1 % (0-6); Hematocrit 48.1 % (37.0-53.0); Hemoglobin 16.4 g/dL (13.5-17.5); IMMATURE GRAN ABSOLUTE AUTO 0.04 K/mm3 (0.00-0.10); IMMATURE GRAN PERCENT AUTO 0 % (0-1); LYMPHOCYTES ABSOLUTE AUTO 1.69 K/mm3 (0.84-5.20); LYMPHOCYTES PERCENT AUTO 11 % (21-46); MONOCYTES PERCENT AUTO 4 % (4-13); Mean Corpuscular HGB 31.1 pg (26.0-34.0); Mean Corpuscular HGB Conc 34.1 g/dL (31.5-36.5); Mean Corpuscular Volume 91 fL (80-100); Mean Platelet Volume 11.6 fL (9.1-12.4); NEUTROPHILS ABSOLUTE AUTO 12.58 K/mm3 (1.96-9.15); NEUTROPHILS PERCENT AUTO 84 % (41-73); Platelet Count 258 K/mm3 (150-400); RDW Coefficient Variation 13.4 % (11.7-14.2); RDW Standard Deviation 45.7 fL (35.1-46.3); Red Blood Cell Count 5.28 M/mm3 (4.30-5.90); White Blood Cell Count 15.06 K/mm3 (4.00-11.30)
[2019-08-06 22:00] LABS: Alanine Aminotransfer (ALT/SGP 24 U/L (12-78); Albumin, Blood 4.4 g/dL (3.4-5.0); Albumin/Globulin Ratio 1.2 (0.8-1.8); Alk Phos 102 U/L (50-136); Anion Gap 10 mmol/L (6-16); Aspartate Aminotrans (AST/SGOT 17 U/L (12-37); Bilirubin, Total 0.4 mg/dL (0.1-1.0); Blood Urea Nitrogen 9 mg/dL (8-24); Bun/Creatinine Ratio 11.3 (12.0-20.0); CO2, Blood 23 mmol/L (21-32); Calcium, Blood 9.5 mg/dL (8.5-10.1); Chloride, Blood 107 mmol/L (98-108); Globulin, Blood 3.7 g/dL (2.2-4.0); Glomerular Filtration Rate >60 (60-); Glucose, Blood 157 mg/dL (70-99); Potassium, Blood 3.8 mmol/L (3.5-5.5); Sodium, Blood 140 mmol/L (136-145); Total Protein, Blood 8.1 g/dL (6.4-8.2); Troponin I <0.015 ng/mL (0.000-0.040)
[2019-08-07] MEDS ORDERED: METO5A PO (01:39)
== END 2019-08-07 02:05 | disposition home or self-care (01) ==
LOC: ER 20:47
PROVIDERS: Physician Assistant
DX: R11.2 Nausea with vomiting, unspecified (principal); E11.9 Type 2 diabetes mellitus without complications; I10 Essential (primary) hypertension; J44.9 Chronic obstructive pulmonary disease, unspecified; F32.9 Major depressive disorder, single episode, unspecified; I25.2 Old myocardial infarction; K21.9 Gastro-esophageal reflux disease without esophagitis; I25.10 Atherosclerotic heart disease of native coronary artery without angina pectoris; Z87.891 Personal history of nicotine dependence; Z88.0 Allergy status to penicillin; Z88.8 Allergy status to other drugs, medicaments and biological substances; Z79.82 Long term (current) use of aspirin; Z79.84 Long term (current) use of oral hypoglycemic drugs; Z79.51 Long term (current) use of inhaled steroids; Z79.899 Other long term (current) drug therapy
CPT/HCPCS: 36415; 71046; 80053; 83690; 84484; 85025; 93005; 93010; 96374; 96375; 99285-25; J1200; J1630; J2405

== ENCOUNTER → 2020-01-26 | Outpatient (CLI) | payer OTHER ==
[~2020-01-26] MED LIST changes: +METO5A PO
[2020-01-26 13:41] LABS: Creatinine, Urine Random 35.6 mg/dL (27.00-270.00)
[2020-01-26 13:44] LABS: Microalb/Creat Ratio UR, Rand 41.292 mg/g (0.000-30.000); Microalbumin, Random Urine 14.7 mg/L (0.000-20.000)
== END | disposition home or self-care (01) ==
LOC: LAB 09:48 → LAB SHORT 09:48
PROVIDERS: Nurse Practitioner Family
DX: E11.65 Type 2 diabetes mellitus with hyperglycemia (principal)
CPT/HCPCS: 82043; 82570

== ENCOUNTER 2020-02-23 12:09 | Inpatient (IN) | payer OTHER ==
[~2020-02-23] VITALS: Ht 182.9 cm; Wt 67.6 kg
[2020-02-23 12:37] LABS: BASOPHILS ABSOLUTE AUTO 0.07 K/mm3 (0.00-0.23); BASOPHILS PERCENT AUTO 1 % (0-2); EOSINOPHILS PERCENT AUTO 2 % (0-6); Hematocrit 46.6 % (37.0-53.0); Hemoglobin 15.7 g/dL (13.5-17.5); IMMATURE GRAN ABSOLUTE AUTO 0.02 K/mm3 (0.00-0.10); IMMATURE GRAN PERCENT AUTO 0 % (0-1); LYMPHOCYTES ABSOLUTE AUTO 2.09 K/mm3 (0.84-5.20); LYMPHOCYTES PERCENT AUTO 18 % (21-46); MONOCYTES ABSOLUTE AUTO 0.61 K/mm3 (0.16-1.47); MONOCYTES PERCENT AUTO 5 % (4-13); Mean Corpuscular HGB 32.2 pg (26.0-34.0); Mean Corpuscular HGB Conc 33.7 g/dL (31.5-36.5); Mean Corpuscular Volume 96 fL (80-100); Mean Platelet Volume 11.9 fL (9.1-12.4); NEUTROPHILS ABSOLUTE AUTO 8.45 K/mm3 (1.96-9.15); NEUTROPHILS PERCENT AUTO 74 % (41-73); Platelet Count 192 K/mm3 (150-400); RDW Coefficient Variation 12.7 % (11.7-14.2); RDW Standard Deviation 45.2 fL (35.1-46.3); Red Blood Cell Count 4.88 M/mm3 (4.30-5.90); White Blood Cell Count 11.44 K/mm3 (4.00-11.30)
[2020-02-23 12:55] LABS: Alanine Aminotransfer (ALT/SGP 21 U/L (12-78); Albumin, Blood 4.1 g/dL (3.4-5.0); Albumin/Globulin Ratio 1.2 (0.8-1.8); Alk Phos 86 U/L (50-136); Anion Gap 6 mmol/L (6-16); Aspartate Aminotrans (AST/SGOT 11 U/L (12-37); Bilirubin, Total 0.6 mg/dL (0.1-1.0); Blood Urea Nitrogen 6 mg/dL (8-24); Bun/Creatinine Ratio 7.6 (12.0-20.0); CO2, Blood 26 mmol/L (21-32); Chloride, Blood 107 mmol/L (98-108); Creatinine, Blood 0.79 mg/dL (0.60-1.20); Globulin, Blood 3.4 g/dL (2.2-4.0); Glomerular Filtration Rate >60 (60-); Glucose, Blood 166 mg/dL (70-99); Potassium, Blood 3.9 mmol/L (3.5-5.5); Sodium, Blood 139 mmol/L (136-145); Total Protein, Blood 7.5 g/dL (6.4-8.2)
--- NOTE | 2020-02-23 19:26 | NUR ---
SUMMARY PT HAS BEEN A&O X3, VSS, ON RROM AIR SINCE ADMISSION TO THE FLOOR. PT IS FORGETFUL AT TIMES BUT ANSWERS MOST QUESTIONS APPROPRIATLY. RIGHT SIDED WEAKNESS NOTED, PT STATES "IT FEELS HEAVY". PT IS VOIDING WNL. BED ALARM IS ON FOR SAFETY, CALL LIGHT IN REACH. PT'S SIGNIFICANT OTHER (PANCHO) HAS BEEN UPDATED VIA [employer] ABOUT PT'S STATUS THIS EVENING WITH PT'S CONSENT. HE IS UPSET THAT THE PT HAS NOT BEEN SEEN BY A NEUROLOGIST, EDUCATION WAS ATTEMPTED BUT WAS SHUT DOWN. REQUEST WAS REPORTED TO [facility] NURSE AT THIS TIME.
--- NOTE | 2020-02-23 20:12 | NUR ---
UPDATE NOTIFIED NURSE PRACTIONER BALBINA THAT PATIENT WAS HAVING A HEADACHE BUT IS NPO FOR A SWALLOW EVAL. ORDERS RECEIVED.
--- NOTE | 2020-02-24 07:50 | NUR ---
SHIFT SUMMARY PATIENT PLEASENT AND COOPERATIVE THROUGHOUT THE NIGHT. PATIENT APPEARED TO SLEEP WELL LAST NIGHT. PATIENT MEDICATED FOR HEADACHE PAIN PER EMAR. PATIENT'S IV FLUIDS RUNNING PER EMAR. PATIENT ABLE TO MOVE SELF ABOUT IN THE BED. REPORT GIVEN TO ONCOMING RN.
--- NOTE | 2020-02-24 08:08 | NUR ---
AM NOTE... ASSUMED CARE OF PT APROX 0700. PT IS A&Ox4. PT WAS ADMITTED FOR POSSIBLE STROKE, PT HAS RIGHT SIDED WEAKNESS, PT IS ABLE TO LIFT AND MOVE ARM BUT HE STATES IS FEELS "HEAVY." SLIGHT RIGHT SIDED FACIAL DROOP NOTED, PT'S SMILE HAS SLIGHT DROOP TO THE RIGHT, PT'S TONGUE DROOPS TO THE RIGHT WHEN ASKED TO SICK IT OUT. PT'S RIGHT LEG IS WEAK BUT PT HAS GROSS MOVEMENT. PT IS NPO FOR SPEECH EVALUATION TODAY. VS STABLE AT THIS TIME, PT C/O OF HEADACHE OF 7/10, AND WAS MEDICATED PER EMAR. L/S CLEAR T/O ON RA. NO EDEMA NOTED ON ASSESSMENT. BT PRESENT AND HYPERACTIVE ABD SOFT AND NONTENDER TO PALP. CALL LIGHT IN REACH WILL CONTINUE TO MONITOR.
[2020-02-24 09:27] LABS: CHOL/HDL RATIO 3.3; Cholesterol 141 mg/dL (50-200); HDL Cholesterol 43 mg/dL (>39); LDL/HDL RATIO 1.8; Low Density Lipoprotein Chol 76 mg/dL (0-110); Triglycerides 111 mg/dL (30-160); Very Low Density Lipoprot Chol 22 mg/dL (6-32)
[2020-02-24] MEDS ORDERED: FLUT1DIS5 INH (12:58)
[2020-02-24] MEDS ORDERED: ALBU2.5V5 INH (13:00)
[2020-02-24] MEDS ORDERED: OXYC5 PO (13:01)
[2020-02-24] MEDS ORDERED: BASAGLAR K100 UNIT/2 SC (13:01)
--- NOTE | 2020-02-24 18:08 | NUR ---
SHIFT SUMMARY... NO ACUTE NEGATIVE CHANGES NOTED THIS SHIFT. PT STILL HAS RIGHT SIDED WEAKNESS BUT THIS HAS IMPROVED SLIGHTLY, PT'S [employer] ON THE RIGHT HAND IS STRONGER THAN IT WAS ON FIRST ASSESSMENT. PT'S CONTROL OF HIS RIGHT ARM HAS IMPROVED SLIGHTLY WELL. PT WAS EVALUATED BY PT/OT AND IS 1-2P PIVOT TRANSFER TO CHAIR/BSC. PT FAILED HIS SWALLOW EVAL AND IS STILL NPO, PT HAS BEEN REFUSING ORAL SWABS/ORAL CARE. PT'S VS HAVE BEEN STABLE. PT'S S.O HAS BEEN UPDATED T/O THIS SHIFT BY THIS RN AND THE DRILL SETUP OPERATOR. CALL LIGHT IN REACH WILL CONTINUE TO MONITOR UNTIL REPORT IS GIVEN TO ONCOMING RN.
[2020-02-24 18:32] LABS: U Amphetamine Screen Not Detected; U Barbituate Screen Not Detected; U Benzodiazapine Screen Not Detected; U Buprenorphine Screen Not Detected; U Cannabinoids Screen DETECTED; U Cocaine Screen Not Detected; U Methadone Screen Not Detected; U Methamphetamine Screen Not Detected; U Opiates Screen Not Detected; U Oxycodone Screen Not Detected; U Phencyclidine Screen Not Detected; U Propoxyphene Screen Not Detected
[2020-02-25 04:31] LABS: Hematocrit 48.5 % (37.0-53.0); Hemoglobin 16.3 g/dL (13.5-17.5); Mean Corpuscular HGB 31.7 pg (26.0-34.0); Mean Corpuscular HGB Conc 33.6 g/dL (31.5-36.5); Mean Corpuscular Volume 94 fL (80-100); Mean Platelet Volume 11.9 fL (9.1-12.4); Platelet Count 182 K/mm3 (150-400); RDW Coefficient Variation 12.2 % (11.7-14.2); RDW Standard Deviation 42.8 fL (35.1-46.3); Red Blood Cell Count 5.15 M/mm3 (4.30-5.90); White Blood Cell Count 8.47 K/mm3 (4.00-11.30)
[2020-02-25 04:46] LABS: Albumin, Blood 3.7 g/dL (3.4-5.0); Anion Gap 8 mmol/L (6-16); Blood Urea Nitrogen 11 mg/dL (8-24); CO2, Blood 25 mmol/L (21-32); Calcium, Blood 8.9 mg/dL (8.5-10.1); Chloride, Blood 105 mmol/L (98-108); Creatinine, Blood 0.85 mg/dL (0.60-1.20); Glomerular Filtration Rate >60 (60-); Glucose, Blood 94 mg/dL (70-99); Phosphorus, Blood 3.5 mg/dL (2.5-4.9); Potassium, Blood 3.6 mmol/L (3.5-5.5); Sodium, Blood 138 mmol/L (136-145)
--- NOTE | 2020-02-25 05:14 | NUR ---
SHIFT SUMMARY: NO ACUTE CHANGES THIS SHIFT. PT CONTINUES TO C/O HEADACHE. PAIN IN OCCIPITAL LOBE. GIVEN ICE PACK FOR COMFORT. PT DENIES ANY CHANGES IN VISION. DENIES NAUSEA. MEDICATED WITH TORADOL PER EMAR WHICH WAS NOT EFFECTIVE. PT THEN MEDICATED WITH ATIVAN WHICH RELIEVED THE HEADACHE FOR APPROX 7 HOURS. CIWA SCORE NOTED TO BE 8 AT TIMES D/T SEVERE HEADACHE AND FEELING MIDLY ANXIOUS. PT STILL WEAK ON RIGHT SIDE. MILD FACIAL DROOP. FLAT AFFECT. A&O T/O SHIFT. VS WNL. NPO AND GIVEN MOUTH SWABS FOR COMFORT. IVF FLUIDS COMPLETE PER ORDERS. VOIDING WELL IN URINAL AT BEDSIDE.
--- NOTE | 2020-02-25 09:25 | NUR ---
AM NOTE... ASSUMED CARE OF PT APROX 0700. PT IS A&Ox4 AND WAS ADMITTED FOR A STROKE. PT HAS RIGHT SIDED WEAKNESS THAT HAS IMPROVED SINCE ADMIT. PT HAS SLIGHT RIGHT SIDED FACIAL DROOP BUT TONGUE NO LONGER DRIFTS TO THE RIGHT. L/S COARSE T/O DIM IN THE BASES ON RA. BT PRESENT AND HYPERACTIVE ABD SOFT AND NONTENDER TO PALP. PT STILL C/O OF SEVERE HEADACHE THAT HE SAID STARTED WHEN "THIS ALL STARTED." PT'S CWIA WAS AT 8 THIS AM. SPEECH THERAPY WAS IN THE ROOM THIS AM, PT IS ABLE TO HAVE A REGULAR ADA DIET AND THIN LIQUIDS PER ST. CALL LIGHT IN REACH WILL CONTINUE TO MONITOR
--- NOTE | 2020-02-25 17:42 | NUR ---
SHIFT SUMMARY... PT WAS STABLE UNTIL APROX 1530, PT STARTED TO C/O OF A SEVERE HEADACHE OF 8/10, PT WAS HOLDING HIS HEAD IN HIS HANDS AND MOANING. PT WAS MEDICATED PER EMAR. PT STATED THAT THE LIGHTS MADE IT WORSE. IT WAS NOTED DURING THIS HEADACHE THAT THE PT'S RIGHT SIDED WEAKNESS RETURNED, HIS TONGUE LISTED TO THE RIGHT, FACIAL DROOP WAS INCREASED AND THE PT WAS HARDLY ABLE TO MOVE HIS RIGHT ARM AND LEG. PROVIDER WAS CALLED AND ORDERS OBTAINED FOR ANOTHER MRI/MRV AND OTHER MEDICATIONS. PT WAS GIVEN ATIVAN 0.5MG THIS HE STATED HELPED HIS HEADACHE THE MOST. AT APROX 1700 PROVIDER WAS AT THE BEDSIDE, PROVIDER AND PT AGREED THAT A COBRA TRANSFER TO [facility] WOULD BE BEST AT THIS TIME. MOST OF THE STRENGTH HAS RETURNED TO HIS ARM, LEG AND FACIAL DROOPS HAS IMPROVED WELL. PT'S VS WERE STABLE T/O THIS EVENT. PT'S S.O. WAS CALLED BY THE PROVIDER AND UPDATED TO THE PT'S PLAN OF CARE. CALL LIGHT IN REACH WILL CONTINUE TO MONITOR.
--- NOTE | 2020-02-25 23:36 | NUR ---
SHIFT SUMMARY: PATIENT ALERT AND ORIENTED WITH MILD WORD FINDING/EXPRESSIVE APHASIA, ABLE TO PIVOT TRANSFER WITH LEFT LEG. RIGHT LEG AND ARM VERY WEAK, POOR TECHNICAL AID STRENGTH IN RIGHT HAND. RIGHT FACIAL DROOP WITH RIGHT SIDED TONGUE DEVIATION. PATIENT VSS, CALL LIGHT WITHIN REACH AND USED APPROPRIATLY. PATIENT LUL TRANSFERED TO [facility] VIA EMS AT APPROX 2230. REPORT GIVEN TO EMS AND RECIEVING FORD YAN. ALL PATIENT BELONGINGS SENT WITH PATIENT, PATIENTS SIGNIFICANT OTHER NOTIFIED OF TRANSFER BY PATIENT PER PATIENT.
== END 2020-02-25 22:22 | disposition short-term general hospital (02) | DRG 102 ==
LOC: ER 12:09 → PCU 14:15
PROVIDERS: Emergency Medicine; Internal Medicine; ADMIT Internal Medicine
DX: G43.409 Hemiplegic migraine, not intractable, without status migrainosus (principal); I63.9 Cerebral infarction, unspecified; F10.929 Alcohol use, unspecified with intoxication, unspecified; I10 Essential (primary) hypertension; J44.9 Chronic obstructive pulmonary disease, unspecified; E11.9 Type 2 diabetes mellitus without complications; I25.10 Atherosclerotic heart disease of native coronary artery without angina pectoris; Z79.82 Long term (current) use of aspirin; Z95.1 Presence of aortocoronary bypass graft; E78.5 Hyperlipidemia, unspecified; Z87.891 Personal history of nicotine dependence; Z79.4 Long term (current) use of insulin
CPT/HCPCS: 36415; 70450; 70496; 70498; 70544; 70551; 80053; 80061; 80069; 82550; 82947; 83036; 85025; 85027; 92526; 92610; 93005; 93010; 93306; 94640; 94760; 97110; 97112; 97162; 97166; 97530; 97535; 99285-25; J1885; J2060; J2765; J3030; J3411; J7120; Q9967

== ENCOUNTER 2022-02-23 10:21 | Inpatient (IN) | payer OTHER ==
[~2022-02-23] VITALS: Ht 182.9 cm; Wt 66.0 kg
[~2022-02-23 10:21] MED LIST changes: +ALBU2.5V5 INH; +BASAGLAR K100 UNIT/2 SC; +FLUT1DIS5 INH; +OXYC5 PO
[2022-02-23 11:09] LABS: BASOPHILS ABSOLUTE AUTO 0.02 K/mm3 (0.00-0.23); BASOPHILS PERCENT AUTO 0 % (0-2); EOSINOPHILS PERCENT AUTO 0 % (0-6); Hematocrit 51.6 % (37.0-53.0); IMMATURE GRAN ABSOLUTE AUTO 0.03 K/mm3 (0.00-0.10); IMMATURE GRAN PERCENT AUTO 1 % (0-1); LYMPHOCYTES ABSOLUTE AUTO 0.57 K/mm3 (0.84-5.20); LYMPHOCYTES PERCENT AUTO 10 % (21-46); MONOCYTES ABSOLUTE AUTO 0.57 K/mm3 (0.16-1.47); MONOCYTES PERCENT AUTO 10 % (4-13); Mean Corpuscular HGB 31.1 pg (26.0-34.0); Mean Corpuscular HGB Conc 34.9 g/dL (31.5-36.5); Mean Corpuscular Volume 89 fL (80-100); Mean Platelet Volume 12.1 fL (9.1-12.4); NEUTROPHILS ABSOLUTE AUTO 4.75 K/mm3 (1.96-9.15); NEUTROPHILS PERCENT AUTO 80 % (41-73); Platelet Count 133 K/mm3 (150-400); RDW Coefficient Variation 13.6 % (11.7-14.2); RDW Standard Deviation 44.3 fL (35.1-46.3); Red Blood Cell Count 5.78 M/mm3 (4.30-5.90); White Blood Cell Count 5.94 K/mm3 (4.00-11.30)
[2022-02-23 11:29] LABS: Albumin, Blood 4.3 g/dL (3.4-5.0); Albumin/Globulin Ratio 1.2 (0.8-1.8); Bilirubin, Direct 0.2 mg/dL (0.0-0.3); Bilirubin, Indirect 0.4 mg/dL (0.1-0.7); Bilirubin, Total 0.6 mg/dL (0.1-1.0); Bun/Creatinine Ratio 14.3 (12.0-20.0); Calcium, Blood 9.3 mg/dL (8.5-10.1); Creatinine, Blood 0.84 mg/dL (0.60-1.20); Globulin, Blood 3.6 g/dL (2.2-4.0); Magnesium, Blood 1.9 mg/dL (1.6-2.4); Potassium, Blood 3.8 mmol/L (3.5-5.5); Total Protein, Blood 7.9 g/dL (6.4-8.2)
[2022-02-23 12:29] LABS: Source, Urine Clean Catch
[2022-02-23 12:52] LABS: Appearance, Urine Clear (Clear); Bilirubin, Urine Neg (Neg); Blood, Urine 3+ (Neg); Color, Urine Yellow (P-Yellow); Glucose Qualitative, Urine Neg (Neg); Ketones, Urine 4+ (Neg); Leukocyte Esterase, Urine Neg (Neg); Nitrite, Urine Neg (Neg); Protein, Urine 3+ (Neg); Specific Gravity, Urine 1.015 (1.003-1.022); Urobilinogen, Urine NORM (Normal)
[2022-02-23 13:11] LABS: Bacteria Rare /hpf; Squamous Epithelial Cells Not Seen /hpf (Few); White Blood Cells, Urine 0-2 /hpf (0-5)
[2022-02-23 13:12] LABS: Granular Casts 0-2 /lpf (0)
[2022-02-23] MEDS ORDERED: ATOR40TA PO (15:51)
[2022-02-23] MEDS ORDERED: Qvar Redihaler INH (15:52)
[2022-02-23] MEDS ORDERED: Zestril30 MG PO (15:54)
[2022-02-23 16:35] LABS: Anti-Xa UFH, PHA Monitoring <0.10 IU/mL; International Normalized Ratio 1.07; Prothrombin Time Results 11.2 Sec (9.7-11.5)
[2022-02-24 01:08] LABS: BASOPHILS ABSOLUTE AUTO 0.02 K/mm3 (0.00-0.23); BASOPHILS PERCENT AUTO 0 % (0-2); EOSINOPHILS ABSOLUTE AUTO 0.01 K/mm3 (0.00-0.68); EOSINOPHILS PERCENT AUTO 0 % (0-6); Hematocrit 48.7 % (37.0-53.0); Hemoglobin 16.7 g/dL (13.5-17.5); IMMATURE GRAN ABSOLUTE AUTO 0.02 K/mm3 (0.00-0.10); IMMATURE GRAN PERCENT AUTO 0 % (0-1); LYMPHOCYTES ABSOLUTE AUTO 1.12 K/mm3 (0.84-5.20); LYMPHOCYTES PERCENT AUTO 16 % (21-46); MONOCYTES ABSOLUTE AUTO 0.82 K/mm3 (0.16-1.47); MONOCYTES PERCENT AUTO 12 % (4-13); Mean Corpuscular HGB 30.5 pg (26.0-34.0); Mean Corpuscular HGB Conc 34.3 g/dL (31.5-36.5); Mean Corpuscular Volume 89 fL (80-100); Mean Platelet Volume 11.6 fL (9.1-12.4); NEUTROPHILS ABSOLUTE AUTO 5.17 K/mm3 (1.96-9.15); NEUTROPHILS PERCENT AUTO 72 % (41-73); Platelet Count 104 K/mm3 (150-400); RDW Coefficient Variation 13.5 % (11.7-14.2); RDW Standard Deviation 44.7 fL (35.1-46.3); Red Blood Cell Count 5.47 M/mm3 (4.30-5.90); White Blood Cell Count 7.16 K/mm3 (4.00-11.30)
[2022-02-24 01:26] LABS: Albumin, Blood 3.2 g/dL (3.4-5.0); Albumin/Globulin Ratio 1.1 (0.8-1.8); Bilirubin, Total 0.3 mg/dL (0.1-1.0); Bun/Creatinine Ratio 17.3 (12.0-20.0); Calcium, Blood 8.1 mg/dL (8.5-10.1); Creatinine, Blood 0.87 mg/dL (0.60-1.20); Potassium, Blood 3.5 mmol/L (3.5-5.5); Total Protein, Blood 6.2 g/dL (6.4-8.2)
--- NOTE | 2022-02-24 05:01 | NUR ---
Patient with VSS on RA overnight. Patient with c/o abdominal pain and nausea overnight. See MAR. Voiding per urinal QS. Heparin gtt running, no changes made to rate overnight. Patient wanting to get in the shower but discussed his heparin gtt and that it could not be paused. Patient states understanding.
--- NOTE | 2022-02-24 18:27 | NUR ---
PATIENT HAS ABDOMINAL PALIN WITH LITTLE STATED RELIEF FROM PAIN MEDICATION. HE IS HOWEVER, SITTING UP, TALKING, AND ABLE TO STAND WHILE PAIN IS STILL RATED A 9 AFTER DILAUDID. PATIENT HAS HAD PAIN MEDICATION AND ANTINAUSEA MEDICATION PRN THROUGHOUT THE DAY. HIS DIET WAS ADVANCED TO CLEAR FLUID, HOWEVER HE DIDN'T TOLERATE IT WELL AND DID VOMIT AFTER LUNCH. HE CAN TOLERATE ICE WATER. PATIENT HAS VISITOR ARE UPSET WITH CARE AND WANT SOMETHING TO HAPPEN MORE IMMEDIATE. THE SURGEON DR. GARCIA MET WITH THEM TO EXPLAIN PROCESS. PATIENT STILL UNHAPPY WITH PLAN.
--- NOTE | 2022-02-25 04:49 | NUR ---
Patient with low grade temperature overnight. Moderate c/o pf both mid and right abdominal pain. Some nausea. See MAR. Voiding dark, concentrated urine. Stopped Heparin gtt. LR still running at 75. patient pleasant and conversive overnight. Expressed frustation over lack of progress with his pain and nausea. Skin inspection reveals no acute skin issues.
[2022-02-25 05:48] LABS: BASOPHILS ABSOLUTE AUTO 0.02 K/mm3 (0.00-0.23); BASOPHILS PERCENT AUTO 0 % (0-2); EOSINOPHILS PERCENT AUTO 0 % (0-6); Hematocrit 42.3 % (37.0-53.0); Hemoglobin 14.4 g/dL (13.5-17.5); IMMATURE GRAN ABSOLUTE AUTO 0.01 K/mm3 (0.00-0.10); IMMATURE GRAN PERCENT AUTO 0 % (0-1); LYMPHOCYTES ABSOLUTE AUTO 0.64 K/mm3 (0.84-5.20); LYMPHOCYTES PERCENT AUTO 12 % (21-46); MONOCYTES ABSOLUTE AUTO 0.57 K/mm3 (0.16-1.47); MONOCYTES PERCENT AUTO 11 % (4-13); Mean Corpuscular HGB 30.8 pg (26.0-34.0); Mean Corpuscular Volume 90 fL (80-100); NEUTROPHILS ABSOLUTE AUTO 3.97 K/mm3 (1.96-9.15); NEUTROPHILS PERCENT AUTO 76 % (41-73); Platelet Count 80 K/mm3 (150-400); RDW Coefficient Variation 13.7 % (11.7-14.2); RDW Standard Deviation 46.1 fL (35.1-46.3); Red Blood Cell Count 4.68 M/mm3 (4.30-5.90); White Blood Cell Count 5.21 K/mm3 (4.00-11.30)
[2022-02-25 05:57] LABS: Albumin, Blood 2.8 g/dL (3.4-5.0); Albumin/Globulin Ratio 1.1 (0.8-1.8); Bilirubin, Total 0.4 mg/dL (0.1-1.0); Bun/Creatinine Ratio 16.1 (12.0-20.0); Calcium, Blood 7.7 mg/dL (8.5-10.1); Creatinine, Blood 0.81 mg/dL (0.60-1.20); Globulin, Blood 2.6 g/dL (2.2-4.0); Magnesium, Blood 1.8 mg/dL (1.6-2.4); Phosphorus, Blood 2.8 mg/dL (2.5-4.9); Potassium, Blood 3.5 mmol/L (3.5-5.5); Total Protein, Blood 5.4 g/dL (6.4-8.2)
[2022-02-25 06:00] LABS: Mean Platelet Volume 13.1 fL (9.1-12.4)
[2022-02-25 12:24] LABS: U Amphetamine Screen Not Detected; U Barbituate Screen Not Detected; U Benzodiazapine Screen Not Detected; U Buprenorphine Screen Not Detected; U Cannabinoids Screen DETECTED; U Cocaine Screen Not Detected; U Methadone Screen Not Detected; U Methamphetamine Screen Not Detected; U Opiates Screen DETECTED; U Oxycodone Screen Not Detected; U Phencyclidine Screen Not Detected; U Propoxyphene Screen Not Detected
[2022-02-25 15:33] LABS: Campylobacter Sp Detected (NOT DETECT); Enteroaggregative E. coli-EAEC Not Detected (NOT DETECT); Enteropathogenic E. coli-EPEC Not Detected (NOT DETECT); Enterotoxigenic E. coli-ETEC Not Detected (NOT DETECT); Plesiomonas Shigelloides Not Detected (NOT DETECT); Salmonella Sp Not Detected (NOT DETECT); Vibrio Cholerae Not Detected (NOT DETECT); Vibrio Sp Not Detected (NOT DETECT); Yersinia Enterocolitica Not Detected (NOT DETECT)
[2022-02-25 15:34] LABS: Adenovirus F 40/41 Not Detected (NOT DETECT); Astrovirus Not Detected (NOT DETECT); Cryptosporidium Not Detected (NOT DETECT); Cyclospora Cayetanensis Not Detected (NOT DETECT); E. Coli O157 Not Detected (NOT DETECT); Entamoeba Histolytica Not Detected (NOT DETECT); Giardia Lamblia Not Detected (NOT DETECT); Norovirus GI/GII Not Detected (NOT DETECT); Rotavirus A Not Detected (NOT DETECT); Sapovirus Not Detected (NOT DETECT); Shiga Toxin-prod E. coli-STEC Not Detected (NOT DETECT); Shigella/Enteroin E. coli-EIEC Not Detected (NOT DETECT)
--- NOTE | 2022-02-25 19:06 | NUR ---
SHIFT SUMMARY PT A&O X4. HAS REQUESTED PAIN MEDS THROUGHOUT SHIFT FOR C/O ABD PAIN. REQUESTED ZOFRAN TWICE. THIS EVENING AT APPROX 1800 PT WAS DRY HEAVING & STATING PAIN WAS 9 OUT OF 10. PLACED CALL TO MD & ORDERS RECEIVED. TOO SOON TO GIVE ZOFRAN. PHENERGAN ORDERED BUT PT STATES HE CAN'T TAKE IT THAT IT CAUSES ADVERSE SIDE EFFECTS. DILAUDID GIVEN PER NEW MD ORDER WITH GOOD RELIEF STATED BY PT.
[2022-02-26 05:04] LABS: BASOPHILS ABSOLUTE AUTO 0.02 K/mm3 (0.00-0.23); BASOPHILS PERCENT AUTO 0 % (0-2); EOSINOPHILS ABSOLUTE AUTO 0.01 K/mm3 (0.00-0.68); EOSINOPHILS PERCENT AUTO 0 % (0-6); Hematocrit 44.7 % (37.0-53.0); Hemoglobin 15.3 g/dL (13.5-17.5); IMMATURE GRAN ABSOLUTE AUTO 0.04 K/mm3 (0.00-0.10); IMMATURE GRAN PERCENT AUTO 1 % (0-1); LYMPHOCYTES ABSOLUTE AUTO 0.85 K/mm3 (0.84-5.20); LYMPHOCYTES PERCENT AUTO 10 % (21-46); MONOCYTES ABSOLUTE AUTO 0.76 K/mm3 (0.16-1.47); MONOCYTES PERCENT AUTO 9 % (4-13); Mean Corpuscular HGB 30.9 pg (26.0-34.0); Mean Corpuscular HGB Conc 34.2 g/dL (31.5-36.5); Mean Corpuscular Volume 90 fL (80-100); Mean Platelet Volume 12.9 fL (9.1-12.4); NEUTROPHILS ABSOLUTE AUTO 6.82 K/mm3 (1.96-9.15); NEUTROPHILS PERCENT AUTO 80 % (41-73); Platelet Count 85 K/mm3 (150-400); RDW Coefficient Variation 13.6 % (11.7-14.2); RDW Standard Deviation 45.5 fL (35.1-46.3); Red Blood Cell Count 4.95 M/mm3 (4.30-5.90)
[2022-02-26 05:37] LABS: Albumin/Globulin Ratio 1.1 (0.8-1.8); Bilirubin, Total 0.6 mg/dL (0.1-1.0); Bun/Creatinine Ratio 13.3 (12.0-20.0); Creatinine, Blood 0.83 mg/dL (0.60-1.20); Globulin, Blood 2.8 g/dL (2.2-4.0); Potassium, Blood 3.5 mmol/L (3.5-5.5); Total Protein, Blood 5.8 g/dL (6.4-8.2)
--- NOTE | 2022-02-26 06:06 | NUR ---
MEMORANDUM STATEMENT CLERK SUMMARY ADMITTED FOR INTRACTABLE NAUSEA. PT IS FULL CODE. PT REQUIRED PAIN MEDICATION AND NAUSEA MEDICATION MULTIPLE TIMES THROUGHOUT THE NIGHT BUT REPORTS IMPROVEMENT IN PAIN AND NAUSEA THIS AM. HE WAS ABLE TO REST IN BETWEEN MED ADMINISTRATION. PT IS 1P SBA TO BR AND USES HIS CANE. HE DOES REPORT SOME WEAKNESS, BUT THIS IS IMPROVING.
[2022-02-26 13:07] LABS: HEPARIN INDUCED PLATELET AB 0.157 OD (0.000-0.400)
--- NOTE | 2022-02-26 19:00 | NUR ---
SHIFT SUMMARY PT A&O X 4. VSS. PT REPORTS FEELING BETTER TODAY COMPARED TO YESTERDAY. IS AGREEABLE TO SWITCHING TO PO PAIN MEDS AND ADVANCING HIS DIET TO HOPEFULLY BE ABLE TO GO HIME TOMORROW. IS TOLERATING PO PAIN MEDS AND CARDIAC DIET.
[2022-02-27 06:29] LABS: BASOPHILS ABSOLUTE AUTO 0.02 K/mm3 (0.00-0.23); BASOPHILS PERCENT AUTO 0 % (0-2); EOSINOPHILS ABSOLUTE AUTO 0.08 K/mm3 (0.00-0.68); EOSINOPHILS PERCENT AUTO 1 % (0-6); Hematocrit 43.3 % (37.0-53.0); Hemoglobin 14.9 g/dL (13.5-17.5); IMMATURE GRAN ABSOLUTE AUTO 0.04 K/mm3 (0.00-0.10); IMMATURE GRAN PERCENT AUTO 1 % (0-1); LYMPHOCYTES ABSOLUTE AUTO 0.82 K/mm3 (0.84-5.20); LYMPHOCYTES PERCENT AUTO 13 % (21-46); MONOCYTES ABSOLUTE AUTO 0.52 K/mm3 (0.16-1.47); MONOCYTES PERCENT AUTO 8 % (4-13); Mean Corpuscular HGB 31.4 pg (26.0-34.0); Mean Corpuscular HGB Conc 34.4 g/dL (31.5-36.5); Mean Corpuscular Volume 91 fL (80-100); Mean Platelet Volume 12.9 fL (9.1-12.4); NEUTROPHILS ABSOLUTE AUTO 5.06 K/mm3 (1.96-9.15); NEUTROPHILS PERCENT AUTO 77 % (41-73); Platelet Count 85 K/mm3 (150-400); RDW Coefficient Variation 13.5 % (11.7-14.2); RDW Standard Deviation 46.2 fL (35.1-46.3); Red Blood Cell Count 4.75 M/mm3 (4.30-5.90); White Blood Cell Count 6.54 K/mm3 (4.00-11.30)
[2022-02-27 06:50] LABS: Albumin, Blood 2.9 g/dL (3.4-5.0); Bilirubin, Total 0.6 mg/dL (0.1-1.0); Bun/Creatinine Ratio 8.5 (12.0-20.0); C-REACTIVE PROTEIN, EXT RANGE 2.25 mg/dL (0.000-0.300); Creatinine, Blood 0.83 mg/dL (0.60-1.20); Globulin, Blood 2.8 g/dL (2.2-4.0); Potassium, Blood 3.3 mmol/L (3.5-5.5); Total Protein, Blood 5.7 g/dL (6.4-8.2)
[2022-02-27] MEDS ORDERED: CLOP75 PO (11:33)
[2022-02-27] MEDS ORDERED: AZIT500 PO (11:33)
[2022-02-27] MEDS ORDERED: XARELTO2.5 M1 PO (11:34)
[2022-02-27] MEDS ORDERED: VISBIOME 112.51 EACH PO (11:34)
[2022-02-27] MEDS ORDERED: PERCOCET 10-321 EA10 PO (11:36)
--- NOTE | 2022-02-27 13:19 | NUR ---
DISCHARGE SUMMARY IV AND TELE REMOVED PRIOR TO DISCHARGE. MEDS FAXED TO [facility] AND HARD COPY RX GIVEN FOR PAIN MEDICATION TO PATIENT. MEDICATIONS AND DISCHARGE EDUCATION REVIEWED WITH AND SIGNED BY PATIENT. PT TAKEN VIA WHEELCHAIR ALONG WITH PERSONAL BELONGINGS TO [facility] [place] FOR TRANSPORTATION.
== END 2022-02-27 12:25 | disposition home or self-care (01) | DRG 372 ==
LOC: ER 10:21 → MEDS 16:40
PROVIDERS: Hospitalist; Student in an Organized Health Care Education/Training Program; ADMIT Family Medicine
DX: A04.5 Campylobacter enteritis (principal); K55.1 Chronic vascular disorders of intestine; J44.9 Chronic obstructive pulmonary disease, unspecified; E11.9 Type 2 diabetes mellitus without complications; E78.5 Hyperlipidemia, unspecified; G47.00 Insomnia, unspecified; G43.909 Migraine, unspecified, not intractable, without status migrainosus; F43.10 Post-traumatic stress disorder, unspecified; F32.A Depression, unspecified; F17.210 Nicotine dependence, cigarettes, uncomplicated; E11.51 Type 2 diabetes mellitus with diabetic peripheral angiopathy without gangrene; I87.8 Other specified disorders of veins; R31.9 Hematuria, unspecified; E88.09 Other disorders of plasma-protein metabolism, not elsewhere classified; E86.0 Dehydration; I73.00 Raynaud's syndrome without gangrene; D69.6 Thrombocytopenia, unspecified; I25.2 Old myocardial infarction; Z95.1 Presence of aortocoronary bypass graft; Z86.73 Personal history of transient ischemic attack (TIA), and cerebral infarction without residual deficits; Z90.49 Acquired absence of other specified parts of digestive tract; Z88.0 Allergy status to penicillin; Z79.899 Other long term (current) drug therapy
CPT/HCPCS: 36415; 71045; 74174; 74177; 76705; 80048; 80053; 80076; 81001; 83036; 83605; 83690; 83735; 84100; 85025; 85520; 85610; 85651; 85730; 86022; 86140; 87507; 93005; 93010; 93880; 93975; 94640; 94664; 94760; 96361; 96374; 96375; 96376; 99285-25; A9270; C9113; J1170; J1200; J1644; J1885; J2185; J2270; J2405; J2765; J7030; J7120; Q9967

== ENCOUNTER 2022-05-15 03:56 | Day surgery (SDC) | payer OTHER ==
[~2022-05-15 03:56] MED LIST changes: -ACET500 PO; -ANORO ELLIPTA1 EACH INH; -CLIN150 PO
[2022-05-15] MEDS ORDERED: CLIN150 PO (09:48)
[2022-05-15] MEDS ORDERED: ACET500 PO (09:51)
[2022-05-15] MEDS ORDERED: ANORO ELLIPTA1 EACH INH (09:51)
== END 2022-05-15 09:19 | disposition home or self-care (01) ==
LOC: ATC 03:56
DX: T84.298A Other mechanical complication of internal fixation device of other bones, initial encounter (principal); Y79.8 Miscellaneous orthopedic devices associated with adverse incidents, not elsewhere classified; I25.10 Atherosclerotic heart disease of native coronary artery without angina pectoris; E11.9 Type 2 diabetes mellitus without complications; I10 Essential (primary) hypertension; J44.9 Chronic obstructive pulmonary disease, unspecified; J45.30 Mild persistent asthma, uncomplicated; F17.210 Nicotine dependence, cigarettes, uncomplicated; Z95.1 Presence of aortocoronary bypass graft; Z79.01 Long term (current) use of anticoagulants; Z88.0 Allergy status to penicillin
CPT/HCPCS: 96372; J1650

== ENCOUNTER → 2022-05-15 | Outpatient (CLI) | payer OTHER ==
[~2022-05-15] MED LIST changes: +ACET500 PO; +ANORO ELLIPTA1 EACH INH; +ATOR40TA PO; +AZIT500 PO; +CLIN150 PO; +CLOP75 PO; +PERCOCET 10-321 EA10 PO; +Qvar Redihaler INH; +VISBIOME 112.51 EACH PO; +XARELTO2.5 M1 PO; +Zestril30 MG PO
== END ==
LOC: LAB SHORT 07:31 → PLD 07:31
DX: K14.0 Glossitis (principal)
CPT/HCPCS: 88305; 88312

== ENCOUNTER 2022-05-16 00:35 | Day surgery (SDC) | payer OTHER ==
[~2022-05-16 00:35] MED LIST changes: +ACET500 PO; +ANORO ELLIPTA1 EACH INH; +CLIN150 PO
== END 2022-05-16 09:08 | disposition home or self-care (01) ==
LOC: ATC 00:35
DX: T84.298A Other mechanical complication of internal fixation device of other bones, initial encounter (principal); Y79.8 Miscellaneous orthopedic devices associated with adverse incidents, not elsewhere classified; I25.10 Atherosclerotic heart disease of native coronary artery without angina pectoris; E11.9 Type 2 diabetes mellitus without complications; I10 Essential (primary) hypertension; J44.9 Chronic obstructive pulmonary disease, unspecified; J45.30 Mild persistent asthma, uncomplicated; F17.210 Nicotine dependence, cigarettes, uncomplicated; Z95.1 Presence of aortocoronary bypass graft; Z79.01 Long term (current) use of anticoagulants; Z88.0 Allergy status to penicillin
CPT/HCPCS: 96372; J1650

== ENCOUNTER 2022-05-17 01:37 | Day surgery (SDC) | payer OTHER | END 2022-05-17 08:43 | disposition home or self-care (01) | LOC: ATC 01:37 | DX: T84.298A Other mechanical complication of internal fixation device of other bones, initial encounter (principal); Y79.8 Miscellaneous orthopedic devices associated with adverse incidents, not elsewhere classified; I25.10 Atherosclerotic heart disease of native coronary artery without angina pectoris; E11.9 Type 2 diabetes mellitus without complications; I10 Essential (primary) hypertension; J44.9 Chronic obstructive pulmonary disease, unspecified; J45.30 Mild persistent asthma, uncomplicated; F17.210 Nicotine dependence, cigarettes, uncomplicated; Z95.1 Presence of aortocoronary bypass graft; Z79.01 Long term (current) use of anticoagulants; Z88.0 Allergy status to penicillin | CPT/HCPCS: 96372; J1650 ==

== ENCOUNTER 2022-05-31 06:14 | Day surgery (SDC) | payer OTHER ==
[~2022-05-31] VITALS: Ht 182.9 cm; Wt 138.0 kg
[2022-05-31] MEDS ORDERED: CLOP75 PO ×2 (06:56→15:39)
[2022-05-31] MEDS ORDERED: BIKTARVY 30-121 EACH PO (06:57)
[2022-05-31] MEDS ORDERED: XARELTO20 MG PO (06:57)
--- NOTE | 2022-05-31 08:01 | NUR ---
05/31/22 0801 Lucrecia Lucia LIDOCAINE 1% WITH EPI 1:200,000 CREATED BY MIXING LIDOCAINE 2% WITH EPI 1:100,000 1:1 WITH NACL.
--- NOTE | 2022-05-31 08:27 | NUR ---
05/31/22 0827 GANESH MOYA 07/10 HE REPORTS HE RUBS HIS HEAD AND HANDS OVER HIS EARS. FREQUENTLY SPITTING INTO RAGS.
--- NOTE | 2022-05-31 08:57 | NUR ---
05/31/22 0856 GANESH MOYA PT SITTING IN RECLINER, [facility]. STATES PAIN STILL 07/10. DR. LUCAS STATES NO PO MED. PT CAN TAKE PAIN MED WHEN HE GETS HOME. PT ADMITS TO HAVING MEDICATION AT HOME.
[2022-05-31] MEDS ORDERED: VISCOUS PO (15:34)
[2022-05-31] MEDS ORDERED: LIDOCAINE 2% PO (15:34)
[2022-05-31] MEDS ORDERED: Ventolin/Proventil INH (15:35)
[2022-05-31] MEDS ORDERED: ATORVASTATIN CA80 M1 PO (15:36)
[2022-05-31] MEDS ORDERED: Biktarvy 50-200-25 M PO (15:38)
[2022-05-31] MEDS ORDERED: Zestril30 MG PO (15:40)
[2022-05-31] MEDS ORDERED: XARELTO2.5 M1 PO (15:41)
[2022-05-31] MEDS ORDERED: Incruse Ellipta 62.5 INH (15:43)
[2022-06-12] MEDS ORDERED: OXYC10TA19 PO (15:22)
[2022-06-12] MEDS ORDERED: PANT40 PO (15:22)
[2022-06-12] MEDS ORDERED: B-1100 M1 PO (15:23)
[2022-06-12] MEDS ORDERED: QUET100 PO (15:23)
== END 2022-05-31 10:00 | disposition home or self-care (01) ==
LOC: ORSCSDS 06:14
PROVIDERS: Otolaryngology
PROC: 0CB7XZX Excision of Tongue, External Approach, Diagnostic (ICD-10-PCS; principal; 2022-05-31 07:30)
DX: D49.0 Neoplasm of unspecified behavior of digestive system (principal); B20 Human immunodeficiency virus [HIV] disease; I10 Essential (primary) hypertension; I25.10 Atherosclerotic heart disease of native coronary artery without angina pectoris; Z87.891 Personal history of nicotine dependence; J45.909 Unspecified asthma, uncomplicated; E11.9 Type 2 diabetes mellitus without complications; I25.2 Old myocardial infarction; Z86.73 Personal history of transient ischemic attack (TIA), and cerebral infarction without residual deficits; Z79.02 Long term (current) use of antithrombotics/antiplatelets; Z79.01 Long term (current) use of anticoagulants
CPT/HCPCS: 82947; 88305; J0330; J1100; J2250; J2270; J2405; J2704; J3010

== ENCOUNTER → 2022-09-05 | Outpatient (CLI) | payer OTHER ==
[~2022-09-05] MED LIST changes: +ATORVASTATIN CA80 M1 PO; +B-1100 M1 PO; +BIKTARVY 30-121 EACH PO; +Biktarvy 50-200-25 M PO; +Incruse Ellipta 62.5 INH; +LIDOCAINE 2% PO; +NICOTINE LOZENGE2 MG MM; +Nicoderm Cq1 EACH TOP; +OXYC10TA19 PO; +PANT40 PO; +QUET100 PO; +QVAR REDIHALE10.6 G2; +VISCOUS PO; +Ventolin/Proventil INH; +XARELTO20 MG PO
[2022-09-05 11:05] LABS: International Normalized Ratio 1.06; Prothrombin Time Results 11.1 Sec (9.7-11.5)
[2022-09-05 11:11] LABS: Hematocrit 41.5 % (37.0-53.0); Hemoglobin 14.1 g/dL (13.5-17.5); Mean Corpuscular HGB 32.6 pg (26.0-34.0); Mean Corpuscular Volume 96 fL (80-100); Mean Platelet Volume 11.7 fL (9.1-12.4); Platelet Count 223 K/mm3 (150-400); RDW Coefficient Variation 13.8 % (11.7-14.2); RDW Standard Deviation 49.3 fL (35.1-46.3); Red Blood Cell Count 4.32 M/mm3 (4.30-5.90); White Blood Cell Count 8.38 K/mm3 (4.00-11.30)
[2022-09-05 12:32] LABS: BASOPHILS ABSOLUTE MAN 0.25 K/mm3 (0.00-0.23); BASOPHILS PERCENT MAN 3 % (0-2); EOSINOPHILS PERCENT MAN 6 % (0-6); LYMPHOCYTES ABSOLUTE MAN 2.59 K/mm3 (0.84-5.20); LYMPHOCYTES PERCENT MAN 31 % (21-46); MONOCYTES ABSOLUTE MAN 0.25 K/mm3 (0.16-1.47); MONOCYTES PERCENT MAN 3 % (4-13); NEUTROPHILS ABSOLUTE MAN 4.77 K/mm3 (1.96-9.15); SEG NEUTROPHILS PERCENT MAN 57 % (41-73); TOTAL CELLS COUNTED 100
[2022-09-05 14:09] LABS: Bun/Creatinine Ratio 15.3 (12.0-20.0); Calcium, Blood 9.4 mg/dL (8.5-10.1); Creatinine, Blood 0.92 mg/dL (0.60-1.20); Potassium, Blood 4.5 mmol/L (3.5-5.5)
== END | disposition home or self-care (01) ==
LOC: LAB 10:19 → LAB SHORT 10:19
PROVIDERS: Radiology Diagnostic Radiology
DX: K55.1 Chronic vascular disorders of intestine (principal); I70.213 Atherosclerosis of native arteries of extremities with intermittent claudication, bilateral legs
CPT/HCPCS: 36415; 80048; 85007; 85027; 85610

== ENCOUNTER 2022-09-06 09:43 | Day surgery (SDC) | payer OTHER ==
[~2022-09-06] VITALS: Ht 182.9 cm; Wt 64.0 kg
[~2022-09-06 09:43] MED LIST changes: -NICOTINE LOZENGE2 MG MM
[2022-09-06] MEDS ORDERED: NICOTINE LOZENGE2 MG MM (10:16)
--- NOTE | 2022-09-06 12:41 | NUR ---
PT ARRIVES TO RECOVERY ROOM WITH LEFT SIDED FEMORAL ACCESS/ ANGIOSEAL IN PLACE. MANUAL PRESSURE HELD FOR 10 MIN AFTER HEMATOMA NOTED. PT L GROIN SITE SOFT/ NON TENDER. VSS. PT GIVEN MORPHINE IV, TOLERATES WELL. CALL LIGHT WITHIN REACH. WILL CONTINUE TO MONTIOR.
--- NOTE | 2022-09-06 13:11 | NUR ---
PT CONTINUE TO MOAN OUT IN DISCOMFORT, L GROIN SITE REMAINS STABLE. NO BLEEDINGNNOTED. PT REMINDED SEVERAL TIMES TO KEEP HEAD DOWN ON GURNEY. PT USING URINAL AT THIS TIME. WILL CONTINUE TO MONITOR.
--- NOTE | 2022-09-06 13:40 | NUR ---
PT USING URINAL ON GURNEY WHEN BECOMES NAUSEATED. SITS STRAIGHT UP IN BED, EMESIS AT THIS TIME. PT WITH EMESIS BAG, NEW ORDERS IN PLACE. PT LAYING FLAT ON GURNEY, L FEMORAL SITE REMAINS STABLE. ZOFRAN 4MG IV GIVEN, TOLERATES WELL. VSS. WILL CONTINUE TO MONITOR
--- NOTE | 2022-09-06 14:05 | NUR ---
PT RESTING COMFORATBLY IN BED, SLEEPING AT THIS TIME. L FEMORAL SITE REMAINS STABLE. VSS. NADN. CALL LIGHT WITHIN REACH.
--- NOTE | 2022-09-06 15:19 | NUR ---
PT VERBALIZES UNDERSTANDING WRITTEN AND VERBAL INSTRUCTIONS. PT AMBULATES TO RESTROOM AND BACK WITHOUT DIFF. VSS. L FEMORAL SITE REMAINS CLEAR.
--- NOTE | 2022-09-06 15:36 | NUR ---
PT DRESSES SELF WITHOUT DIFF. L FEMORAL SITE CLEAR. NO BLEEDING OR HEMATOMA NOTED. VSS. NADN. PT DC TO HOME VIA FRIEND BY SIM
== END 2022-09-06 15:50 | disposition home or self-care (01) ==
LOC: MHTC 09:43
DX: I70.223 Atherosclerosis of native arteries of extremities with rest pain, bilateral legs (principal); K55.1 Chronic vascular disorders of intestine
CPT/HCPCS: 37221; 37227; 37252; 75716; 75726; 75774; 76937; 99152; 99153; A9270; C1714; C1725; C1753; C1760; C1769; C1874; C1876; C1887; C1894; C2623; J0360; J1200; J2250; J2270; J2405; J3010; J7030; Q9967

== ENCOUNTER 2022-10-10 10:39 | Day surgery (SDC) | payer OTHER ==
[~2022-10-10] VITALS: Ht 182.9 cm; Wt 62.1 kg
[~2022-10-10 10:39] MED LIST changes: +NICOTINE LOZENGE2 MG MM
[2022-10-10] MEDS ORDERED: BIKTARVY 30-121 EACH (11:30)
--- NOTE | 2022-10-10 11:31 | NUR ---
10/10/[address] REVIEWED CHART AND STATED PT IS A SUIITABLE CANDIDATE FOR NURSE SEDATION. DR. BLUM AND DR. CEVALLOS AGREE.
== END 2022-10-10 12:38 | disposition home or self-care (01) ==
LOC: ORSCSDS 10:39
PROVIDERS: Internal Medicine Gastroenterology
PROC: 0D757ZZ Dilation of Esophagus, Via Natural or Artificial Opening (ICD-10-PCS; principal; 2022-10-10 12:00)
PROC: 0DJ08ZZ Inspection of Upper Intestinal Tract, Via Natural or Artificial Opening Endoscopic (ICD-10-PCS; principal; 2022-10-10 12:00)
DX: R13.10 Dysphagia, unspecified (principal); R19.7 Diarrhea, unspecified; R10.9 Unspecified abdominal pain; B20 Human immunodeficiency virus [HIV] disease; J44.9 Chronic obstructive pulmonary disease, unspecified; I25.10 Atherosclerotic heart disease of native coronary artery without angina pectoris; E78.5 Hyperlipidemia, unspecified; E11.9 Type 2 diabetes mellitus without complications; I25.2 Old myocardial infarction; I48.91 Unspecified atrial fibrillation; I10 Essential (primary) hypertension; I73.9 Peripheral vascular disease, unspecified; Z86.73 Personal history of transient ischemic attack (TIA), and cerebral infarction without residual deficits; Z87.891 Personal history of nicotine dependence; Z79.01 Long term (current) use of anticoagulants; Z79.899 Other long term (current) drug therapy
CPT/HCPCS: 82947; A9270; J2250; J2704; J7120

== ENCOUNTER 2023-05-29 08:35 | Day surgery (SDC) | payer OTHER ==
[~2023-05-29] VITALS: Ht 182.9 cm; Wt 62.1 kg
[2023-05-29] VITALS (7 sets, daily range): BP systolic 170–191; BP diastolic 75–87
[~2023-05-29 08:35] MED LIST changes: +ANORO ELLIPTA1 EAC1 INH; +BIKTARVY 30-121 EACH; +BIKTARVY 50-201 EAC1 PO; +CARV3.125
--- NOTE | 2023-05-29 12:58 | NUR ---
PT UP TO THE BATHROOM /C SBA. TOLERATED WELL. -BLEEDING OR SWELLING R GROIN AREA.
--- NOTE | 2023-05-29 13:10 | NUR ---
TYLENOL 650MG PO GIVEN FOR R GROIN PAIN .
--- NOTE | 2023-05-29 13:11 | NUR ---
PT VERBLALIZED UNDERSTANDING OF WRITTEN AND VERBAL D/C INST. IV REMOVED.
[2023-06-18] MEDS ORDERED: PERIDEX (11:40)
== END 2023-05-29 13:30 | disposition home or self-care (01) ==
LOC: MHTC 08:35
DX: E11.51 Type 2 diabetes mellitus with diabetic peripheral angiopathy without gangrene (principal); K55.1 Chronic vascular disorders of intestine; I77.1 Stricture of artery; I10 Essential (primary) hypertension; E78.5 Hyperlipidemia, unspecified; I25.10 Atherosclerotic heart disease of native coronary artery without angina pectoris; I48.91 Unspecified atrial fibrillation; Z86.73 Personal history of transient ischemic attack (TIA), and cerebral infarction without residual deficits; I25.2 Old myocardial infarction; Z87.891 Personal history of nicotine dependence; Z88.0 Allergy status to penicillin; Z88.1 Allergy status to other antibiotic agents; Z79.02 Long term (current) use of antithrombotics/antiplatelets; Z79.01 Long term (current) use of anticoagulants; J44.9 Chronic obstructive pulmonary disease, unspecified
CPT/HCPCS: 37222; 75625; 75716; 75774; 76937; 99152; 99153; A9270; C1725; C1760; C1769; C1874; C1887; C1894; C9764; C9765; J0360; J1644; J2250; J3010; J7030; J7050; Q9967

== ENCOUNTER 2023-06-19 09:01 | Day surgery (SDC) | payer OTHER ==
[~2023-06-19] VITALS: Ht 182.9 cm; Wt 62.0 kg
[2023-06-19] VITALS (7 sets, daily range): BP systolic 163–193; BP diastolic 78–94
[~2023-06-19 09:01] MED LIST changes: +PERIDEX
--- NOTE | 2023-06-19 13:04 | NUR ---
PT AMBULATES TO RESTROOM AND BACK WITHOUT DIFF. PT DRESSES SELF WITHOUT DIFF. PT IV DC'D. CATH INTACT. PRESSURE DSG APPLIED. PT VERBALIZES UNDERSTANDING WRITTEN INSTRUCTIONS. PT SITE REMAINS CLEAR. NO BLEEDING OR HEMATOMA NOTED TO L FEMORAL SITE. PT DC TO HOME VIA WC
== END 2023-06-19 13:10 | disposition home or self-care (01) ==
LOC: MHTC 09:01
DX: I73.9 Peripheral vascular disease, unspecified (principal); I48.91 Unspecified atrial fibrillation; J44.9 Chronic obstructive pulmonary disease, unspecified; Z21 Asymptomatic human immunodeficiency virus [HIV] infection status; I10 Essential (primary) hypertension; E78.5 Hyperlipidemia, unspecified; I25.2 Old myocardial infarction; F43.10 Post-traumatic stress disorder, unspecified; Z88.0 Allergy status to penicillin
CPT/HCPCS: 37224; 75716; 75774; 76937; 99152; 99153; C1725; C1760; C1769; C1887; C1894; J1644; J2250; J2405; J3010; J7030; J7050; Q9967